=== PATIENT | male | born 1955 | race Caucasian/White ===

== ENCOUNTER 2020-02-27 07:39 | Outpatient (CLI) | payer BC ==
--- NOTE | 2020-02-27 17:42 | Ultrasound Report ---
PROCEDURE: Abdomen Complete INDICATIONS: NONALCOHOLIC FATTY LIVER DISEASE TECHNIQUE: Real-time scanning was performed of the abdominal and retroperitoneal organs, with image documentatio n. COMPARISON: None. FINDINGS: Liver: Liver is normal in size and homogeneous in echotexture. Liver is diffusely echogenic. No foca l hepatic mass lesions. Gallbladder: Gallbladder contains multiple mobile gallstones. Largest gallstone measures 8 mm. 6 mm s tone is noted in the gallbladder neck. The lateral wall is not thickened measuring 1.9 mm. No pericho lecystic fluid. No sonographic Gardiner sign. Biliary ducts: Intrahepatic bile ducts are non-dilated. Extrahepatic bile duct caliber measures 3.0 mm. Normal is 6-7 mm or less in diameter, or 10 mm or less post-cholecystectomy. Pancreas: Visualized portions of the pancreas are sonographically normal. Spleen: Spleen is normal in size and homogeneous in echotexture. Kidneys: Kidneys are normal in size and echotexture. Right kidney measures 11.7 cm long; left kidne y measures 11.8 cm long. No hydronephrosis or nephrolithiasis. No solid masses. Small simple appea ring cyst noted in the left kidney. Aorta: Visualized aorta is normal in caliber at less than 3 cm. Iliacs: Proximal common iliac arteries are normal in caliber at less than 2.5 cm. IVC: Intrahepatic inferior vena cava is patent. Miscellaneous: No free abdominal fluid. IMPRESSION: 1. Echogenic liver. Finding typically represents fatty infiltration, however the finding is nonspecif ic and other etiologies including hepatic cirrhosis can produce a similar appearance. Recommend corre lation with clinical and laboratory data. 2. Cholelithiasis without sonographic evidence of cholecystitis. 3. Left renal cysts. Reviewed by: Madeleine Martinez MD, PhD on 02/27/2020 4:40 PM AKST Approved by: Madeleine Martinez MD, PhD on 02/27/2020 4:40 PM AKST Station ID: [id number]
== END 2020-02-27 07:40 | disposition home or self-care (01) ==
LOC: DI 07:39
PROVIDERS: ATTEND Physician Assistant
DX: R93.2 Abnormal findings on diagnostic imaging of liver and biliary tract (principal); K80.20 Calculus of gallbladder without cholecystitis without obstruction; N28.1 Cyst of kidney, acquired